=== PATIENT | male | born 1980 | race Hispanic/Latino ===

== ENCOUNTER 2018-03-19 13:43 | Emergency (ER) | payer OTHER ==
[~2018-03-19] VITALS: Ht 175.3 cm; Wt 77.1 kg
[2018-03-19 15:00] LABS: ABSOLUTE BASOPHIL COUNT 0 /CUMM (0.0-0.2); ABSOLUTE EOSINOPHIL COUNT 0 /CUMM (0.0-0.7); ABSOLUTE GRANULOCYTE CT 7.5 /CUMM (1.4-6.5); ABSOLUTE LYMPH COUNT 0.7 /CUMM (1.2-3.4); ABSOLUTE MONOCYTE COUNT 0.6 /CUMM (0.10-0.60); BASOPHIL % 0.2 % (0.0-2.0); EOSINOPHIL % 0.2 % (0-5); HEMATOCRIT 42.6 % (42-52); MEAN CORPUSCULAR HGB 29.9 PG (27.0-31.0); MEAN CORPUSCULAR HGB CONC 33.5 G/DL (33.0-37.0); MEAN CORPUSCULAR VOLUME 89.2 FL (80.0-94.0); MEAN PLATELET VOLUME 9.1 FL (7.4-10.4); PLATELET COUNT 190 /CUMM (130-400); RBC DISTRIBUTION WIDTH 13.4 % (11.5-14.5); RED BLOOD CELL CT 4.78 /CUMM (4.70-6.10); WHITE BLOOD CELL COUNT 8.8 /CUMM (4.8-10.8)
--- NOTE | 2018-03-19 16:19 | ED GENERAL ADULT ---
History of Present Illness General Chief Complaint: Lower Extremity Problems Stated Complaint: LEFT LE INFECTION Source: patient Exam Limitations: no limitations Vital Signs & Intake/Output Vital Signs & Intake/Output Vital Signs Date Time Temp Pulse Resp B/P B/P Pulse O2 O2 Flow FiO2 Mean Ox Delivery Rate 03/19 1613 99.3 92 18 123/73 99 Room Air 03/19 1404 98.9 108 17 125/77 98 Room Air Allergies Coded Allergies: No Known Allergies (03/19/18) Reconcile Medications Naproxen (Naprosyn) 500 MG TABLET 1 TAB PO BID PRN pain Sulfamethoxazole/Trimethoprim (Bactrim Ds Tablet) 800 MG-160 MG TABLET 1 TAB PO BID cellulitis Triage Note: RECEIVED 37 YO MALE C/O REDNESS AND WARMTH TO LEFT ANTERIOR LOWER EXTREMITY, STARTED SUNDAY AM. PT REPORTS HE HAD AN ABSCESS TO LEFT LOWER POSTERIOR LEG/CALF AREA A FEW WEEKS AGO, I+D DONE. PT REPORTS PAIN /. Triage Nurses Notes Reviewed? yes Onset: Gradual Duration: day(s): Timing: constant HPI: 37 y/o otherwise healthy male presenting with left sher redness/pain x3 days. Reports he woke up with the symptoms. 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 Thinks that this may have triggered his symptoms. Denies fevers, nausea, vomiting. Patient expresses concern for abscess as he had a significant abscess to his left calf approximately 1 month ago that required I&D. He has not noticed any purulent drainage from the current site. (Edelmira Duran) Past History Travel History Traveled to [place] past 21 day No Medical History Any Pertinent Medical History? none Neurological: NONE EENT: NONE Cardiovascular: NONE Respiratory: NONE Gastrointestinal: NONE Hepatic: NONE Renal: NONE Musculoskeletal: NONE Psychiatric: NONE Endocrine: NONE Blood Disorders: NONE Cancer(s): NONE Surgical History Surgical History: non-contributory Psychosocial History What is your primary language Iranian Tobacco Use: Never used Family History Hx Contributory? No (Edelmira Duran) Review of Systems Review of Systems Constitutional: Reports: no symptoms. EENTM: Reports: no symptoms. Respiratory: Reports: no symptoms. Cardiovascular: Reports: no symptoms. GI: Reports: no symptoms. Genitourinary: Reports: no symptoms. Musculoskeletal: Reports: no symptoms. Skin: Reports: see HPI. Neurological/Psychological: Reports: no symptoms. Hematologic/Endocrine: Reports: no symptoms. Immunologic/Allergic: Reports: no symptoms. All Other Systems: Reviewed and Negative (Edelmira Duran) Physical Exam Physical Exam General Appearance: well developed/nourished, no apparent distress, alert, awake , comfortable Comments: Gen.: Well-nourished, well-developed, no acute distress. Head: Normocephalic, atraumatic. Eyes: Normal inspection bilaterally Ears: Normal inspection bilaterally Nose: Normal inspection Neck: Normal inspection Lungs: clear to auscultation bilaterally, normnal breath sounds Heart: regular rate and rhythm Abdomen: soft and non-tender Extremities: Diffuse erythema to the distal left sher, calf is supple and nontender, no edema, mild increased warmth, no areas of fluctuance, left lower extremity is neurovascularly intact with 2+ distal pulses Neurologic: alert and oriented x3, steady gait Skin: warm and dry Psychiatric: Normal mood and affect, no apparent delusions or hallucinations, behavior appropriate Core Measures ACS in differential dx? No CVA/TIA Diagnosis: No Sepsis Present: No Sepsis Focused Exam Completed? No (Edelmira Duran) Progress Differential Diagnoses I considered the following diagnoses in my evaluation of the patient: [ Cellulitis versus abscess versus sepsis versus DVT] Plan of Care: Orders Procedure Date/time Status US-SUPERFICIAL IMAGING EXTREMI 03/19 1644 Active BLOOD CULTURE 03/19 1417 Active LACTIC ACID 03/19 1417 Complete COMPREHENSIVE METABOLIC PANEL 03/19 1417 Complete CBC WITHOUT DIFFERENTIAL 03/19 141 Complete Laboratory Tests 03/19/18 1717: Lactic Acid Cancelled 03/19/18 1449: Anion Gap 11, Estimated GFR > 60, BUN/Creatinine Ratio 15.7, Glucose 95, Lactic Acid 1.5, Calcium 9.6, Total Bilirubin 0.8, AST 22, ALT 29, Alkaline Phosphatase 61, Total Protein 8.0, Albumin 4.8, Globulin 3.2, Albumin/Globulin Ratio 1.5, CBC w Diff NO MAN DIFF REQ, RBC 4.78, MCV 89.2, MCH 29.9, MCHC 33.5, RDW 13.4, MPV 9.1, Gran % 85.0 H, Lymphocytes % 8.2 L, Monocytes % 6.4, Eosinophils % 0.2, Basophils % 0.2, Absolute Granulocytes 7.5 H, Absolute Lymphocytes 0.7 L, Absolute Monocytes 0.6, Absolute Eosinophils 0, Absolute Basophils 0 Microbiology 03/19 1455 BLOOD: Blood Culture - RECD 03/19 1450 BLOOD: Blood Culture - RECD Labs unremarkable, WBC and lactic acid are within normal limits. Patient given single dose of vancomycin in the emergency department. Blood culture sent. Will concern for systemic illness at this time. Will discharge home with Rx Bactrim. Patient will return to the emergency department for wound recheck in 2 days. Patient signed out to KENZIE Peña with ultrasound pending to rule out abscess versus DVT. Otherwise we will plan for discharge home. Initial ED EKG: none (Edelmira Duran) Departure Departure Disposition: HOME OR SELF CARE Condition: Stable Clinical Impression Primary Impression: Cellulitis Referrals: Patient Has No Primary Care Dr (PCP/Family) Additional Instructions: Take Bactrim as prescribed. Return to the emergency department in 2 days for wound check. Return to the emergency department sooner for any new or worsening symptoms. Departure Forms: Customer Survey General Discharge Information Prescriptions: Current Visit Scripts Sulfamethoxazole/Trimethoprim (Bactrim Ds Tablet) 1 TAB PO BID #20 TAB Naproxen (Naprosyn) 1 TAB PO BID PRN pain #60 TAB (Edelmira Duran) PA/RESIDENTIAL PLUMBER Co-Sign Statement Statement: ED Attending supervision documentation- [] I saw and evaluated the patient. I have also reviewed all the pertinent lab results and diagnostic results. I agree with the findings and the plan of care as documented in the PA's/RESIDENTIAL PLUMBER's documentation. [X] I have reviewed the ED Record and agree with the PA's/RESIDENTIAL PLUMBER's documentation. [] Additions or exceptions (if any) to the PAs/RESIDENTIAL PLUMBER's note and plan are summarized below: [] (Stanislaw Orodñez DO) Critical Care Note Critical Care Note Critical Care Time: non-applicable (Edelmira Duran)
[2018-03-19] MEDS ORDERED: BACTRIM DS TAB1 EACH PO (16:53)
[2018-03-19] MEDS ORDERED: NAPROSYN500 M1 PO (16:53)
[2018-03-19 18:10] VITALS: BP 120/77
--- NOTE | 2018-03-19 18:18 | ULTRASOUND REPORT ---
EXAMINATION: LEFT LOWER EXTREMITY DEEP VENOUS ULTRASOUND CLINICAL INFORMATION: Left lower extremity pain, swelling and cellulitis. COMPARISON: None. TECHNIQUE: Duplex Doppler imaging with compression maneuvers were performed of the left lower extremity deep venous system. FINDINGS: The visualized common femoral, femoral and popliteal veins demonstrate normal compressibility and color flow without evidence of venous thrombosis. Visualized portions of the calf veins demonstrate normal color fill-in suggesting patency. There is no evidence of a Hurst's cyst. IMPRESSION: No evidence of deep venous thrombosis involving the left lower extremity.
--- NOTE | 2018-03-19 18:19 | ULTRASOUND REPORT ---
EXAMINATION: US SUPERFICIAL IMAGING, EXTREMITY CLINICAL INFORMATION: 37-year-old male with left leg cellulitis. COMPARISON: Same day left lower extremity DVT study. TECHNIQUE: Grayscale and color Doppler imaging was obtained of the subcutaneous tissues in the left anterior mid/low sher region. FINDINGS: No focal mass. No focal fluid collection. Skin demonstrates mild edema diffusely. IMPRESSION: Mild skin edema without focal fluid collection.
== END 2018-03-19 18:30 ==
LOC: ERH 13:43
PROVIDERS: Physician Assistant
DX: L03.116 Cellulitis of left lower limb (principal)
CPT/HCPCS: 76881; 87040; 96374; 96375; J1885; J3370; J7040

== ENCOUNTER 2018-03-24 16:12 | Observation (INO) | payer SELFPAY ==
[~2018-03-24] VITALS: Ht 175.3 cm; Wt 72.6 kg
[~2018-03-24 16:12] MED LIST: BACTRIM DS TAB1 EACH PO; NAPROSYN500 M1 PO
--- NOTE | 2018-03-24 16:20 | ED SKIN/ALLERGY COMPLAINT ---
History of Present Illness General Chief Complaint: Suture Removal/Wound Recheck Stated Complaint: "WOUND CHECK" Source: patient, old records Exam Limitations: no limitations Vital Signs & Intake/Output Vital Signs & Intake/Output Vital Signs Date Time Temp Pulse Resp B/P B/P Pulse O2 O2 Flow FiO2 Mean Ox Delivery Rate 03/24 1621 99.3 94 18 127/75 99 Room Air Allergies Coded Allergies: No Known Allergies (03/19/18) Reconcile Medications Naproxen (Naprosyn) 500 MG TABLET 1 TAB PO BID PRN pain Sulfamethoxazole/Trimethoprim (Bactrim Ds Tablet) 800 MG-160 MG TABLET 1 TAB PO BID cellulitis Triage Nurses Notes Reviewed? yes Onset: Gradual Duration: day(s): Timing: recent history Severity: moderate Location: left leg HPI: 37yo male presents to ED for abscess check. Patient was seen here 5 days ago and diagnosed with cellulitis to left sher, he was started on bactrim and instructed to return in 2 days. 3 days ago the patient return and had I&D performed with packing material placed. He he here for another evaluation and packing removal. Patient has been changing the dressings. He states the pain has improved in left leg however believes redness may be worse. He denies fevers, chills, vomiting. (Rebecca Mott) Past History Travel History Traveled to [place] past 21 day No Medical History Any Pertinent Medical History? none Neurological: NONE EENT: NONE Cardiovascular: NONE Respiratory: NONE Gastrointestinal: NONE Hepatic: NONE Renal: NONE Musculoskeletal: NONE Psychiatric: NONE Endocrine: NONE Blood Disorders: NONE Cancer(s): NONE Surgical History Surgical History: non-contributory Psychosocial History What is your primary language Icelandic Family History Hx Contributory? No (Rebecca Mott) Review of Systems Review of Systems Constitutional: Reports: no symptoms. EENTM: Reports: no symptoms. Respiratory: Reports: no symptoms. Cardiovascular: Reports: no symptoms. GI: Reports: no symptoms. Genitourinary: Reports: no symptoms. Musculoskeletal: Reports: no symptoms. Skin: Reports: see HPI. Neurological/Psychological: Reports: no symptoms. Hematologic/Endocrine: Reports: no symptoms. Immunologic/Allergic: Reports: no symptoms. All Other Systems: Reviewed and Negative (Rebecca Mott) Physical Exam Physical Exam General Appearance: well developed/nourished, no apparent distress, alert, awake Head: atraumatic, normal appearance Eyes: Bilateral: normal appearance. Ears, Nose, Throat: hearing grossly normal Neck: normal inspection, supple, full range of motion Respiratory: no respiratory distress Back: normal inspection, normal range of motion Extremities: left anterior lower leg: erythema extending from mid sher to just proximal of ankle, central induration and swelling with incision and packing material, purulent drainage centrally, erythema is extending beyond border of skin marker medially. +warmth, +tenderness Neurologic/Psych: awake, alert, oriented x 3 Skin: see erythema as mentioned above (Martha ESPINO,Rebecca Fox) Progress Differential Diagnosis: abscess/cellulitis, contact dermatitis, urticaria, sepsis Plan of Care: Orders Procedure Date/time Status Regular Diet 03/25 B Active CBC WITHOUT DIFFERENTIAL 03/25 06 Active LACTIC ACID 03/24 1935 Active Pathway - chart 03/24 1824 Active House Staff 03/24 1824 Active Patient Data 03/24 1824 Active Patient Data 03/[address] in observation 03/24 1703 Active ED Holding Orders 03/24 1637 Active Vital Signs 03/24 1637 Active Code Status 03/24 1637 Active BLOOD CULTURE 03/24 1635 Active LACTIC ACID 03/24 1635 Complete COMPREHENSIVE METABOLIC PANEL 03/24 1635 Complete CBC WITHOUT DIFFERENTIAL 03/24 1635 Complete Nursing Misc 03/24 UNK Active Activity/Ambulation 03/24 UNK Active Current Medications Sig/Malini Start time Last Medication Dose Stop Time Status Admin Vancomycin HCl 1,000 MG DAILY 03/25 0900 UNVr Sodium Chloride 250 ML (Normal Saline 0.9%) Enoxaparin Sodium 40 MG DAILY 03/24 182 AC (Lovenox) Laboratory Tests 03/24/18 1640: Anion Gap 10, Estimated GFR > 60, BUN/Creatinine Ratio 23.8, Glucose 104 H, Lactic Acid 1.0, Calcium 9.4, Total Bilirubin 0.3, AST 20, ALT 29, Alkaline Phosphatase 79, Total Protein 7.6, Albumin 4.2, Globulin 3.4, Albumin/Globulin Ratio 1.2, CBC w Diff NO MAN DIFF REQ, RBC 4.49 L, MCV 90.2, MCH 30.0, MCHC 33.2, RDW 12.8, MPV 8.9, Gran % 71.6, Lymphocytes % 18.6 L, Monocytes % 6.7, Eosinophils % 2.8, Basophils % 0.3, Absolute Granulocytes 5.6, Absolute Lymphocytes 1.5, Absolute Monocytes 0.5, Absolute Eosinophils 0.2, Absolute Basophils 0 Microbiology 03/24 1642 BLOOD: Blood Culture - RECD 03/24 1640 BLOOD: Blood Culture - RECD Culture shows MRSA sensitive to bactrim. Packing material was removed and further drainage performed with purulent Material removed. No further incision necessary. Given the patient's erythema spreading beyond skin marker from 3 days ago despite appropriate abx course he requires admission for IV antibiotics. Failed outpatient therapy. Patient alert and on IV vancomycin. Blood cultures pending. Dr. Ward spoke with hospitalist regarding general medicine observation. Initial ED EKG: none (Rebecca Mott) Initial ED EKG: none (Stanislaw Ward DO) Departure Departure Disposition: STILL A PATIENT Condition: Stable Clinical Impression Primary Impression: Cellulitis and abscess of left leg Referrals: Patient Has No Primary Care Dr (PCP/Family) Departure Forms: Customer Survey General Discharge Information (Rebecca Mott) Observation Note Spoke With: Fawn Bullard MD Physician Advisor Notified: STANISLAW WARD DO Place Patient In: Non-ED OBS Care Area Rationale for Observation: My rational for observation is as follows [the patient needs to be placed in observation for IV antibiotics, wound checks, evaluate closely to exclude evidence of necrotizing fasciitis.]. PA/HOUSEKEEPING CLEANER Co-Sign Statement Statement: ED Attending supervision documentation- [x] I saw and evaluated the patient. I have also reviewed all the pertinent lab results and diagnostic results. I agree with the findings and the plan of care as documented in the PA's/HOUSEKEEPING CLEANER's documentation. [] I have reviewed the ED Record and agree with the PA's/HOUSEKEEPING CLEANER's documentation. [] Additions or exceptions (if any) to the PAs/HOUSEKEEPING CLEANER's note and plan are summarized below: [] (Stanislaw Ward DO)
[2018-03-24 17:05] LABS: ABSOLUTE BASOPHIL COUNT 0 /CUMM (0.0-0.2); ABSOLUTE EOSINOPHIL COUNT 0.2 /CUMM (0.0-0.7); ABSOLUTE GRANULOCYTE CT 5.6 /CUMM (1.4-6.5); ABSOLUTE LYMPH COUNT 1.5 /CUMM (1.2-3.4); ABSOLUTE MONOCYTE COUNT 0.5 /CUMM (0.10-0.60); BASOPHIL % 0.3 % (0.0-2.0); EOSINOPHIL % 2.8 % (0-5); GRANULOCYTE % 71.6 % (42.2-75.2); HEMATOCRIT 40.4 % (42-52); MEAN CORPUSCULAR HGB CONC 33.2 G/DL (33.0-37.0); MEAN CORPUSCULAR VOLUME 90.2 FL (80.0-94.0); MEAN PLATELET VOLUME 8.9 FL (7.4-10.4); PLATELET COUNT 232 /CUMM (130-400); RBC DISTRIBUTION WIDTH 12.8 % (11.5-14.5); RED BLOOD CELL CT 4.49 /CUMM (4.70-6.10); WHITE BLOOD CELL COUNT 7.8 /CUMM (4.8-10.8)
--- NOTE | 2018-03-24 17:37 | History & Physical ---
Su Rushing MD 03/24/18 9777: General Information and HPI MD Statement: I have seen and personally examined ERICA GONZALEZ and documented this H&P. The patient is a 37 year old M who presented with a patient stated chief complaint of CELLULITIS Source of Information: patient, old records Exam Limitations: no limitations History of Present Illness: This is a 37-year-old male with no past medical history that comes to us for worsening left lower extremity wound. The patient states that one week ago he noticed an area of erythema, tenderness on his pretibial left lower extremity. The patient works in maintenance and uses a ladder often. He states that one of the rungs of the ladder usually rests against his sehr at the area where the wound started. On his other leg, in the same position, he has an area of sparse hair growth. The patient states that 3 days after he noticed the lesion, he came here because it appeared to be worsening and was accompanied with swelling of the area extending into the upper part of the foot. While here, the patient had a left lower extremity ultrasound and was found to have no evidence of DVT. He was not found to have any focal fluid collection. He was not found to have any WBC count or fever. The patient was discharged on Bactrim and took it for 3 days but again noticed that the wound was worsening and that the erythema extended up his calf near his knee and down to his foot with increased swelling. The patient denies any previous similar wound or history of uncontrolled infections. He denies any history of diabetes or smoking. He has no history of drug use. The patient does note that he has a dog at home and questions if he can get an infection like this from the dog. He has no history of recent travel. Allergies/Medications Allergies: Coded Allergies: No Known Allergies (03/19/18) Home Med list Naproxen (Naprosyn) 500 MG TABLET 1 TAB PO BID PRN pain Sulfamethoxazole/Trimethoprim (Bactrim Ds Tablet) 800 MG-160 MG TABLET 1 TAB PO BID cellulitis Compliance With Home Meds: GOOD Past History Travel History Traveled to [place] past 21 day No Medical History Neurological: NONE EENT: NONE Cardiovascular: NONE Respiratory: NONE Gastrointestinal: NONE Hepatic: NONE Renal: NONE Musculoskeletal: NONE Psychiatric: NONE Endocrine: NONE Blood Disorders: NONE Cancer(s): NONE Surgical History Surgical History: non-contributory Past Family/Social History Family History Relations & Conditions if any Family history was reviewed; no changes noted. Psychosocial History Smoking Status: Never Smoked ETOH Use: occasional use Illicit Drug Use: denies illicit drug use Review of Systems Review of Systems Constitutional: Reports: no symptoms. EENTM: Reports: no symptoms. Cardiovascular: Reports: no symptoms. Respiratory: Reports: no symptoms. GI: Reports: no symptoms. Genitourinary: Reports: no symptoms. Musculoskeletal: Reports: no symptoms. Skin: Reports: change in skin color, lesions. Neurological/Psychological: Reports: see HPI. Hematologic/Endocrine: Reports: no symptoms. Immunologic/Allergic: Reports: no symptoms. Exam & Diagnostic Data Last 24 Hrs of Vital Signs/I&O Vital Signs Date Time Temp Pulse Resp B/P B/P Pulse O2 O2 Flow FiO2 Mean Ox Delivery Rate 03/24 1621 99.3 94 18 127/75 99 Room Air Physical Exam General Appearance Alert, Oriented X3, Cooperative, No Acute Distress Skin No Breakdown, lleft lower extremity from the malleoli up to directly below the patella, erythema and edema with induration in the mid sher with incision post drainage. Patient has warmth and tenderness throughout. Skin Temp/Moisture Exam: Warm/Dry Sepsis Skin Exam (color): Normal for Ethnicity HEENT Atraumatic, EOMI, Mucous Membr. moist/pink Neck No JVD Cardiovascular Regular Rate, Normal S1, Normal S2, No Murmurs Lungs Clear to Auscultation, Normal Air Movement Abdomen Normal Bowel Sounds, Soft, No Tenderness, No Hepatospenomegaly, No Masses Neurological Normal Speech Extremities No Clubbing, No Cyanosis, Normal Pulses Vascular Normal Pulses Sepsis Peripheral Pulse Location: Radial Sepsis Peripheral Pulse Exam: Normal Body Front and Back (Adult) 1) Last 24 Hrs of Labs/Gregory: Laboratory Tests 03/24/18 1640: Anion Gap 10, Estimated GFR > 60, BUN/Creatinine Ratio 23.8, Glucose 104 H, Lactic Acid 1.0, Calcium 9.4, Total Bilirubin 0.3, AST 20, ALT 29, Alkaline Phosphatase 79, Total Protein 7.6, Albumin 4.2, Globulin 3.4, Albumin/Globulin Ratio 1.2, CBC w Diff NO MAN DIFF REQ, RBC 4.49 L, MCV 90.2, MCH 30.0, MCHC 33.2, RDW 12.8, MPV 8.9, Gran % 71.6, Lymphocytes % 18.6 L, Monocytes % 6.7, Eosinophils % 2.8, Basophils % 0.3, Absolute Granulocytes 5.6, Absolute Lymphocytes 1.5, Absolute Monocytes 0.5, Absolute Eosinophils 0.2, Absolute Basophils 0 Microbiology 03/24 1642 BLOOD: Blood Culture - RECD 03/24 1640 BLOOD: Blood Culture - RECD Assessment/Plan Assessment: This is a 37-year-old male with no past medical history that comes to us for worsening left lower extremity wound. The injury started as an area of pressure where his leg rests against a ladder during work. He came in 3 days later to have the injury looked at as it was worsening. His WBC and lactic acid were within normal limits patient was given a single dose of vancomycin in the ED and was sent home on Bactrim. The wound was worsening so the patient returned 2 days later to have I&D performed with packing material placed. Wound cultures were sent. He also states that he had a similar abscess to his posterior left calf 1 month ago that has not fully healed, required I&D. The patient does not smoke and has no history of diabetes. On Sunday culture results returned positive for MRSA sensitive to Bactrim. However the erythema and edema has worsened the patient came back today. In the ED, patient was found to have temperature 99.3, pulse rate 94, respiratory rate 18, blood pressure 127/75, bedside pulse ox 99% on room air. Patient was found to have a normal WBC count, hemoglobin 13.4, creatinine 0.8, lactic acid 1.0, LFTs normal. Assessment -Left lower extremity MRSA cellulitis with history of similar posterior calf wound one month ago, slowly healing with question of osteomyelitis Plan -Admit patient to general medical floors for evaluation and treatment -Vancomycin 1 g twice a day and draw vancomycin level after steady state is achieved i.e. after fourth dose -Toradol for pain -Wound care -To rule out osteomyelitis we'll do x-ray of fibula/tibia and foot left-sided with ESR baseline level -First lactic acid is negative we will follow-up in 3 hours as per ED orders -Hemoglobin A1c to rule out diabetes as patient has chronic slowly healing abscesses, likely normal though as patient's random glucose level today is 104 -Follow blood cultures -Trend CBC and fever -DVT prophylaxis with heparin 5000 units every 8 subcutaneously -Regular diet As Ranked By This Provider Problem List: 1. Cellulitis Core Measures/Misc (04/08) Acute Coronary Syndrome ACS Diagnosis: No Congestive Heart Failure Congestive Heart Failure Diagnosis No Cerebrovascular Accident CVA/TIA Diagnosis: No VTE (View Protocol) VTE Risk Factors Trauma No Mechanical VTE Prophylaxis d/t Physical Contraindication No VTE Pharm Prophylaxis d/t NA PharmProphylax ordered Sepsis (View protocol) Sepsis Present: No If YES complete Sepsis Event Note If YES complete Sepsis Event Note Linda Vanegas MD 03/24/18 1855: Core Measures/Misc (04/08) Sepsis (View protocol) If YES complete Sepsis Event Note If YES complete Sepsis Event Note Attending MD Review Statement Attending Statement Attending MD Statement: examined this patient, discuss w/resident/PA/ACCESS REP, agreed w/resident/PA/ACCESS REP, reviewed EMR data (avail), discussed with nursing, amended to note Attending Assessment/Plan: Patient is a 37-year-old male with no known medical history who presents for evaluation of nonhealing infection on his left sher. He has been seen twice in the ER the week prior and was prescribed Bactrim. Despite this infection has not improved with erythema now spreading in the cephalic and caudal direction. The primary point is mildly swollen with mild fluctuance however there is no drainage. Although patient reports that this wound is only about a week and duration he admits that about a month ago he had a similar draining wound on the cough on the same leg about a month ago. Reports that this required I&D of the time. He is afebrile. Hemodynamically stable. He has no leukocytosis on labs. Recommendations: Patient will beobserve on the medical unit where he will receive IV antibiotic therapy. We will continue intravenous vancomycin 1 g IV every 12. Monitor Vanco levels. Recommend x-ray of the lower extremity to rule out any underlying osteomyelitis. Obtain baseline ESR. Pain management with Toradol as needed. DVT prophylaxis with subcutaneous heparin.
[2018-03-24 19:49] VITALS: BP 128/70
[2018-03-24 22:31] VITALS: BP 128/70
--- NOTE | 2018-03-24 22:53 | RADIOLOGY REPORT ---
EXAMINATION: XR TIBIA AND FIBULA, LEFT XR FOOT, LEFT CLINICAL INFORMATION: Nonhealing wound COMPARISON: None TECHNIQUE: AP and lateral views of the left tibia and fibula were obtained. 3 views of the left foot. FINDINGS: The left tibia and fibula appear intact. No evidence for periosteal reaction. No acute fracture or subluxation. No radiopaque foreign body. The bone mineralization of the left foot appears within normal range. No lytic or sclerotic lesions. No periosteal reaction. Os peroneum noted. IMPRESSION: Normal left tibia, fibula and foot.
[2018-03-25 06:55] VITALS: BP 120/62
[2018-03-25 07:52] LABS: ABSOLUTE BASOPHIL COUNT 0 /CUMM (0.0-0.2); ABSOLUTE EOSINOPHIL COUNT 0.2 /CUMM (0.0-0.7); ABSOLUTE GRANULOCYTE CT 3.4 /CUMM (1.4-6.5); ABSOLUTE LYMPH COUNT 1.3 /CUMM (1.2-3.4); ABSOLUTE MONOCYTE COUNT 0.4 /CUMM (0.10-0.60); BASOPHIL % 0.4 % (0.0-2.0); EOSINOPHIL % 3.7 % (0-5); GRANULOCYTE % 64.3 % (42.2-75.2); MEAN CORPUSCULAR HGB 30.4 PG (27.0-31.0); MEAN CORPUSCULAR HGB CONC 33.8 G/DL (33.0-37.0); MEAN CORPUSCULAR VOLUME 89.7 FL (80.0-94.0); MEAN PLATELET VOLUME 8.9 FL (7.4-10.4); PLATELET COUNT 223 /CUMM (130-400); RED BLOOD CELL CT 3.94 /CUMM (4.70-6.10); WHITE BLOOD CELL COUNT 5.3 /CUMM (4.8-10.8)
[2018-03-25 08:14] LABS: HEMATOCRIT 35.4 % (42-52)
--- NOTE | 2018-03-25 09:30 | PN- Housestaff ---
Yony Lewis [birth year]1830: Subjective Subjective: Patient seen and examined at bedside. He is complaining of mild pain in left lower extremity. He denies fevers, chills, palpitation, chest pain, abdominal pain, diarrhea, constipation, burning micturition Review of Systems Cardiovascular: Reports: see HPI. Objective Last 24 Hrs of Vital Signs/I&O Vital Signs Date Time Temp Pulse Resp B/P B/P Pulse O2 O2 Flow FiO2 Mean Ox Delivery Rate 03/25 0655 97.9 70 20 120/62 100 Room Air 03/24 2231 98.7 90 20 128/70 98 03/24 1949 98.7 90 20 128/70 98 02 1621 99.3 94 18 127/75 99 Room Air Intake & Output 03/25 1600 03/25 0800 03/25 0000 Intake Total 390 300 Output Total Balance 390 300 Intake, IV 150 Intake, Oral 240 300 Patient 160 lb Weight Weight Bed scale Measurement Method Physical Exam General Appearance: Alert, Oriented X3, Cooperative, No Acute Distress Cardiovascular: Normal S1, Normal S2 Lungs: Clear to Auscultation, Normal Air Movement Extremities: LEFT lower extremity, erythema, and wound Assessment/Plan Assessment: Patient is a 37-year-old male with no known medical history who presents for evaluation of nonhealing infection on his left sher. He has been seen twice in the ER the week prior and was prescribed Bactrim. Despite this infection has not improved with erythema now spreading in the cephalic and caudal direction. The primary point is mildly swollen with mild fluctuance however there is no drainage. Although patient reports that this wound is only about a week and duration he admits that about a month ago he had a similar draining wound on the cough on the same leg about a month ago. Reports that this required I&D of the time. He is afebrile. Hemodynamically stable. He has no leukocytosis on labs. Assessment and plan: -Last Sunday debridement done -We will keep the patient in observation -IV vancomycin -We will start oral vancomycin tomorrow -Her left lower extremity erythema subsided -X-ray rule out osteomyelitis -Pain management with Toradol as needed -DVT prophylaxis -Can go home tomorrow on oral antibiotic Problem List: 1. Cellulitis 2. Cellulitis and abscess of left leg Pain Ratin Pain Location: left leg Pain Goal: Remain pain free Pain Plan: Pain management pathway Tomorrow's Labs & Rationales: cbc,Piero Ta MD 03/25/18 1105: Subjective Follow-up For: Cellulitis Review of Systems Constitutional: Reports: see HPI. Objective Last 24 Hrs of Vital Signs/I&O Vital Signs Date Time Temp Pulse Resp B/P B/P Pulse O2 O2 Flow FiO2 Mean Ox Delivery Rate 03/25 0655 97.9 70 20 120/62 100 Room Air 03/24 2231 98.7 90 20 128/70 98 03/24 1949 98.7 90 20 128/70 98 03/24 1621 99.3 94 18 127/75 99 Room Air Intake & Output 03/25 1600 03/25 0800 03/25 0000 Intake Total 390 300 Output Total Balance 390 300 Intake, IV 150 Intake, Oral 240 300 Patient 160 lb Weight Weight Bed scale Measurement Method Physical Exam General Appearance: Alert, Oriented X3, Cooperative, No Acute Distress Skin: Erythema and warmth (resolving) wound with minimal purulence HEENT: Atraumatic, PERRLA, EOMI Neck: Supple, No JVD, No thryomegaly Lymphatic: Axillary nl, Cervical nl Cardiovascular: Regular Rate, Normal S1, Normal S2 Lungs: Clear to Auscultation, Normal Air Movement Abdomen: Normal Bowel Sounds, Soft, No Tenderness, No Hepatospenomegaly, No Masses Current Medications: Current Medications Sig/Malini Start time Last Medication Dose Route Stop Time Status Admin Enoxaparin Sodium 40 MG DAILY 03/24 1822 CA SC Heparin Sodium 5,000 UNIT Q8 03/24 2200 03/25 (Porcine) SC 0551 Ketorolac 30 MG TIDPRN PRN 03/24 1915 03/24 Tromethamine IV 1943 Vancomycin HCl 1,000 MG Q12H 03/25 0500 03/25 Sodium Chloride 250 ML IV 0551 Vancomycin HCl 0 .STK-MED ONE 03/24 1706 DC .ROUTE Vancomycin HCl 1,000 MG ONCE ONE 03/24 1645 CA 03/24 Sodium Chloride 250 ML IV 03/24 1744 1710 Last 24 Hrs of Lab/Gregory Results Last 24 Hrs of Labs/Mics: Laboratory Tests 03/25/18 0650: CBC w Diff NO MAN DIFF REQ, RBC 3.94 L, MCV 89.7, MCH 30.4, MCHC 33.8, RDW 13.0 , MPV 8.9, Gran % 64.3, Lymphocytes % 24.6, Monocytes % 7.0, Eosinophils % 3.7, Basophils % 0.4, Absolute Granulocytes 3.4, Absolute Lymphocytes 1.3, Absolute Monocytes 0.4, Absolute Eosinophils 0.2, Absolute Basophils 0 03/24/18 2120: Lactic Acid 1.3 03/24/18 1640: Anion Gap 10, Estimated GFR > 60, BUN/Creatinine Ratio 23.8, Glucose 104 H, Hemoglobin A1c Pending, Lactic Acid 1.0, Calcium 9.4, Total Bilirubin 0.3, AST 20, ALT 29, Alkaline Phosphatase 79, Total Protein 7.6, Albumin 4.2, Globulin 3.4, Albumin/Globulin Ratio 1.2, CBC w Diff NO MAN DIFF REQ, RBC 4.49 L, MCV 90.2, MCH 30.0, MCHC 33.2, RDW 12.8, MPV 8.9, Gran % 71.6, Lymphocytes % 18.6 L , Monocytes % 6.7, Eosinophils % 2.8, Basophils % 0.3, Absolute Granulocytes 5.6 , Absolute Lymphocytes 1.5, Absolute Monocytes 0.5, Absolute Eosinophils 0.2, Absolute Basophils 0, ESR Westergren 78 H Microbiology 03/24 164 BLOOD: Blood Culture - RECD 03/24 1640 BLOOD: Blood Culture - RECD Attending MD Review Statement Attending Statement Attending MD Statement: examined this patient, reviewed EMR data (avail) Attending Assessment/Plan: This patient is a 37-year-old male without a significant past medical history who was admitted 03/24/18 for left lower extremity cellulitis and abscess. The patient intially presented 6 days prior to admission after hitting his sher on a ladder. The area became progressively erthematous and painful and was seen 2 days prior to admission with an abscess which was drained. He remained on bactrim and cultures returned as MRSA. He continued to progress and on follow up wound check he was admitted for IV ABX therapy. Currently the patient feels better, erythema has gone down white blood count remains normal and he is afebrile. - Continue Vancomycin - Loose dressing - Switch to oral abx in the AM for discharge (ok to put back on bactrim)
[2018-03-25 14:58] VITALS: BP 112/63
[2018-03-25 21:45] VITALS: BP 98/60
[2018-03-26 06:44] VITALS: BP 98/64
--- NOTE | 2018-03-26 07:15 | PN- Housestaff ---
Yony Lewis 03/26/18 0714: Subjective Follow-up For: Left lower extremities cellulitis Subjective: Patient seen and examined at bedside. He denies fever, chills, chest pain, palpitation, abdominal pain, diarrhea, constipation, burning micturition Review of Systems Constitutional: Reports: see HPI. Objective Last 24 Hrs of Vital Signs/I&O Vital Signs Date Time Temp Pulse Resp B/P B/P Pulse O2 O2 Flow FiO2 Mean Ox Delivery Rate 03/26 1528 98.2 77 18 110/65 100 Room Air 03/26 0644 97.8 72 20 98/64 99 03/25 2145 98.5 69 20 98/60 97 Intake & Output 03/26 1600 03/26 0800 03/26 0000 Intake Total 720 250 Output Total Balance 720 250 Intake, IV 250 Intake, Oral 720 Number 0 Bowel Movements Patient 160 lb Weight Physical Exam General Appearance: Alert, Oriented X3, Cooperative, No Acute Distress Cardiovascular: Regular Rate, Normal S1, Normal S2, No Murmurs, Gallops, Rubs Lungs: Clear to Auscultation, Normal Air Movement Abdomen: Normal Bowel Sounds, Soft, No Tenderness, No Hepatospenomegaly, No Masses Assessment/Plan Assessment: Patient is a 37-year-old male with no known medical history who presents for evaluation of nonhealing infection on his left sher. He has been seen twice in the ER the week prior and was prescribed Bactrim. Despite this infection has not improved with erythema now spreading in the cephalic and caudal direction. The primary point is mildly swollen with mild fluctuance however there is no drainage. Although patient reports that this wound is only about a week and duration he admits that about a month ago he had a similar draining wound on the cough on the same leg about a month ago. Reports that this required I&D of the time. He is afebrile. Hemodynamically stable. He has no leukocytosis on labs. Assessment and plan: -Last debridement done on Sunday -IV vancomycin -Vancomycin discontinued today -We will discharge patient on oral doxycycline 100 mg twice daily for 7 days -Her left lower extremity erythema subsided -X-ray rule out osteomyelitis -Pain management with Toradol as needed -DVT prophylaxis -Patient discharged home today Problem List: 1. Cellulitis and abscess of left leg 2. Cellulitis and abscess of lower extremity 3. Cellulitis Pain Ratin Pain Location: Left lower extreme Pain Goal: Remain pain free Pain Plan: Pain management pathway Tomorrow's Labs & Rationales: No labs Robert Szymanski 03/26/18 1425: Attending MD Review Statement Attending Statement Attending MD Statement: examined this patient, discuss w/resident/PA/CLIENT SOLUTIONS SPECIALIST, agreed w/resident/PA/CLIENT SOLUTIONS SPECIALIST, reviewed EMR data (avail), discussed with nursing, discussed with case mgmt Attending Assessment/Plan: Left lower extremity abscess and cellulitis- draining some pus , no osteomyelitis on xray. will be dced home on doxycycline po for MRSA on cultures. dw pt the care plan . Told him about the photosenstivity with doxycycline.
--- NOTE | 2018-03-26 07:15 | Patient Discharge Instructions ---
Discharge Instructions General Discharge Information You were seen/treated for: Left lower extremity cellulitis Special Instructions: *Please avoid working outside under the sun while taking your Doxycycline for your skin infection. *Please follow-up with primary care physician 1 week *Change dressing every day *In case of fever, chills, left lower extremity swelling, diarrhea, constipation , cough, blood in urine, blood in sputum please seek medical attention in case of near emergency. Diet Continue normal diet: Yes Activity Activity Self Limited: Yes Acute Coronary Syndrome Inclusion Criteria At DC or during hospital stay patient has or had the following: ACS DIAGNOSIS No Discharge Core Measures Meds if any: Prescribed or Continued at Discharge Meds if any: NOT Prescribed or Continued at Discharge Congestive Heart Failure Inclusion Criteria At DC or during hospital stay patient has or had the following: CHF DIAGNOSIS No Discharge Core Measures Meds if any: Prescribed or Continued at Discharge Meds if any: NOT Prescribed or Continued at Discharge Cerebrovascular accident Inclusion Criteria At DC or during hospital stay patient has or had the following: CVA/TIA Diagnosis No Discharge Core Measures Meds if any: Prescribed or Continued at Discharge Meds if any: NOT Prescribed or Continued at Discharge Venous thromboembolism Inclusion Criteria VTE Diagnosis No VTE Type NONE VTE Confirmed by (Test) NONE Discharge Core Measures - Per Current guidelines, there needs to be overlap - treatment for the first 5 days of Warfarin therapy. - If discharged on Warfarin prior to 5 days of - overlap therapy, the patient will need to be - assessed for post discharge needs including - *Post discharge parental anticoagulation - *Warfarin and/or parental anticoagulation education - *Follow up date to check INR post discharge At least 5 days overlap therapy as Inpatient No Meds if any: Prescribed or Continued at Discharge Note: Overlap Therapy is Warfarin and Anticoagulant Meds if any: NOT Prescribed or Continued at Discharge
[2018-03-26] MEDS ORDERED: DOXYCYCLINE HY100 M2 PO ×2 (10:47→14:52)
[2018-03-26 15:28] VITALS: BP 110/65
== END 2018-03-26 16:23 ==
LOC: ERH 16:12 → ERHI 17:03 → ENRESERV 18:32 → ENTRNSPT 19:05 → EDTRNSPTSTS 19:09 → 2NA 19:15 → CMPTRNSPT 19:28 → 2NA 03-26 07:41 → ENPENDDIS 03-26 14:55 → ENTRNSPT 03-26 15:38 → CMPTRNSPT 03-26 16:21 → 2NA 03-26 16:23
PROVIDERS: Physician Assistant; Student in an Organized Health Care Education/Training Program
DX: L03.116 Cellulitis of left lower limb (principal); B95.62 Methicillin resistant Staphylococcus aureus infection as the cause of diseases classified elsewhere
CPT/HCPCS: 36592; 73590-LT; 73630-LT; 87040; 96372; 96374; 96375; G0378; J1644; J1650; J1885; J3370; J7040